=== PATIENT | male | born 1985 | race Asian ===

== ENCOUNTER 2017-02-20 17:04 | Emergency (ER) | payer MEDICAID, OTHER ==
[~2017-02-20] VITALS: Ht 170.2 cm; Wt 75.0 kg
[~2017-02-20 17:04] MED LIST: HALO5 PO; METF500T4 PO; VITAD1000 PO
[2017-02-20] MEDS ORDERED: LORazepam 2 MG/ML VIAL IM ONE (17:45)
[2017-02-20 19:14] VITALS: BP 124/85
== END 2017-02-20 19:17 | disposition home or self-care (01) ==
LOC: EMS 17:07
DX: S09.90XA Unspecified injury of head, initial encounter (principal); I10 Essential (primary) hypertension; W22.8XXA Striking against or struck by other objects, initial encounter; Y93.89 Activity, other specified; Y92.89 Other specified places as the place of occurrence of the external cause; Y99.8 Other external cause status
CPT/HCPCS: 70450; 96372; 99284; J2060; 99283

== ENCOUNTER 2017-09-04 10:31 | Inpatient (IN) | payer MEDICAID, OTHER ==
[~2017-09-04] VITALS: Ht 157.5 cm; Wt 64.5 kg
[~2017-09-04 10:31] MED LIST changes: +CLOZ100 PO
[2017-09-04 11:12] LABS: BASOPHILS % (AUTO) 0.7 % (0.0-2.0); EOSINOPHILS % (AUTO) 0.6 % (1.0-6.0); HEMATOCRIT 46.3 % (41-53); HEMOGLOBIN 15.6 g/dL (13.5-17.5); LYMPHOCYTES # (AUTO) 1.8 K/uL (1.0-4.8); LYMPHOCYTES % (AUTO) 16.9 % (22.0-44.0); MEAN CORPUSCULAR HGB CONC 33.7 G/dL (31.0-37.0); MEAN CORPUSCULAR VOLUME 74 fL (80-100); MONOCYTES # (AUTO) 0.7 K/uL (0.1-1.0); MONOCYTES % (AUTO) 6.5 % (2.0-9.0); NEUTROPHILS # (AUTO) 8.1 K/uL (1.8-7.7); NEUTROPHILS % (AUTO) 75.3 % (40.0-70.0); PLATELET COUNT (AUTO) 261 K/uL (150-450); RED BLOOD CELL COUNT(AUTO) 6.24 MIL/uL (4.50-5.90); RED CELL DISTRIBUTION WIDTH 13.4 % (11.5-14.5)
[2017-09-04 11:31] LABS: ANION GAP 13 mmol/L (8-16); CALCIUM, TOTAL 9.6 mg/dL (8.8-10.5); CARBON DIOXIDE 27 mmol/L (22-29); CHLORIDE 100 mmol/L (98-107); CREATININE 0.81 mg/dL (0.60-1.30); GLOMERULAR FILTR. RATE CALC > 60 mL/min (>60); GLUCOSE,RANDOM 163 mg/dL (70-110); POTASSIUM 3.8 mmol/L (3.5-5.1); SODIUM SERUM 140 mmol/L (136-145); UREA NITROGEN, BLOOD 10 mg/dL (7-18)
[2017-09-04 11:37] LABS: ALANINE AMINOTRANSFERASE 58 U/L (12-78); ALBUMIN 4.3 g/dL (3.4-5.0); ALKALINE PHOSPHATASE 97 U/L (46-116); ASPARTATE AMINOTRANSFERASE 26 U/L (15-37); BILIRUBIN,TOTAL 1.7 mg/dL (0.1-1.0); TOTAL PROTEIN, SERUM 8.5 g/dL (6.4-8.2)
[2017-09-04] MEDS ORDERED: LORazepam 2 MG TABLET PO PRN (14:15)
[2017-09-04] MEDS ORDERED: ZOLPIDEM TARTRATE 10 MG TABLET PO PRN (14:15)
[2017-09-04] MEDS ORDERED: HALOPERIDOL 5 MG TABLET PO PRN (14:15)
[2017-09-04] MEDS ORDERED: HALOPERIDOL 5 MG TABLET PO ONE (16:45)
[2017-09-04] MEDS ORDERED: LORazepam 2 MG TABLET PO ONE (16:45)
[2017-09-04 17:11] LABS: AMPHET/METH SCREEN,URINE NEGATIVE (NEGATIVE); BARBITURATE SCREEN, URINE NEGATIVE (NEGATIVE); BENZODIAZEPINES SCREEN,URINE NEGATIVE (NEGATIVE); CANNABINOID SCREEN,URINE NEGATIVE (NEGATIVE); COCAINE SCREEN,URINE NEGATIVE (NEGATIVE); METHADONE SCREEN, URINE NEGATIVE (NEGATIVE); OPIATE SCREEN,URINE NEGATIVE (NEGATIVE)
[2017-09-04 17:14] LABS: PHENCYCLIDINE SCREEN,URINE NEGATIVE (NEGATIVE)
[2017-09-04] MEDS ORDERED: PETROLATUM,WHITE 71 GM JELLY TP PRN (18:15)
[2017-09-04] MEDS ORDERED: ALBUTEROL SULFATE HFA 90 MCG/PUFF 8 GM INHALER IH PRN (18:15)
[2017-09-04] MEDS ORDERED: BACITRACIN 28.4 GM OINTMENT TP PRN (18:15)
[2017-09-04] MEDS ORDERED: ONDANSETRON HCL 4 MG TABLET PO PRN (18:15)
[2017-09-04] MEDS ORDERED: MAG HYDROX/AL HYDROX/SIMETH ES 30 ML SUSPENSION UDCUP PO PRN (18:15)
[2017-09-04] MEDS ORDERED: MAGNESIUM HYDROXIDE SUSPENSION 30 ML UDCUP PO PRN (18:15)
[2017-09-04] MEDS ORDERED: BENZOCAINE/MENTHOL LOZENGE [8 LOZENGES/PACKET] MM PRN (18:15)
[2017-09-04] MEDS ORDERED: LOPERAMIDE HCL 2 MG CAPSULE PO PRN (18:15)
[2017-09-04] MEDS ORDERED: CloNIDine HCL 0.1 MG TABLET PO PRN (18:15)
[2017-09-04] MEDS ORDERED: IBUPROFEN 600 MG TABLET PO PRN (18:15)
[2017-09-04] MEDS ORDERED: ACETAMINOPHEN 325 MG TABLET PO PRN (18:15)
[2017-09-04] MEDS ORDERED: DEXTROSE 50%-WATER 25 GM/50 ML SYRINGE IVP PRN (18:30)
[2017-09-04 19:13] VITALS: BP 118/70
[2017-09-04] MEDS ORDERED: INFLUENZA VIRUS VACCINE QVS 2017-18 (3YR+)/PF 60 MCG/0.5 ML SYRINGE IM ONE (19:45)
[2017-09-04] MEDS: HALOPERIDOL 5 MG TABLET PO SCH (21:00)
[2017-09-05 05:43] LABS: GLUCOMETER DEV NAME(LOC) 3EI B; GLUCOSE,POINT OF CARE 153 MG/DL (70-110)
[2017-09-05 06:08] LABS: EOSINOPHILS % (AUTO) 3.3 % (1.0-6.0); HEMATOCRIT 43.3 % (41-53); HEMOGLOBIN 14.7 g/dL (13.5-17.5); LYMPHOCYTES # (AUTO) 2.9 K/uL (1.0-4.8); LYMPHOCYTES % (AUTO) 33.9 % (22.0-44.0); MEAN CORPUSCULAR HEMOGLOBIN 25.3 pg (26.0-34.0); MEAN CORPUSCULAR HGB CONC 33.9 G/dL (31.0-37.0); MEAN CORPUSCULAR VOLUME 75 fL (80-100); MONOCYTES % (AUTO) 12.1 % (2.0-9.0); NEUTROPHILS # (AUTO) 4.3 K/uL (1.8-7.7); NEUTROPHILS % (AUTO) 49.7 % (40.0-70.0); PLATELET COUNT (AUTO) 240 K/uL (150-450); RED BLOOD CELL COUNT(AUTO) 5.81 MIL/uL (4.50-5.90); RED CELL DISTRIBUTION WIDTH 13.3 % (11.5-14.5)
[2017-09-05 06:30] LABS: ANION GAP 8 mmol/L (8-16); CARBON DIOXIDE 28 mmol/L (22-29); CHLORIDE 103 mmol/L (98-107); CHOL/HDL RATIO 3.9 (4.2-7.3); CHOLESTEROL 139 mg/dL (131-200); CREATININE 0.71 mg/dL (0.60-1.30); GLOMERULAR FILTR. RATE CALC > 60 mL/min (>60); GLUCOSE,RANDOM 160 mg/dL (70-110); HDL CHOLESTEROL 36 mg/dL (40-60); LDL CHOL (CALC.) 83 mg/dL (0-130); POTASSIUM 4.1 mmol/L (3.5-5.1); SODIUM SERUM 139 mmol/L (136-145); THYROID STIMULATING HORMONE 1.16 uIU/mL (0.36-3.74); TRIGLYCERIDES 102 mg/dL (15-150); UREA NITROGEN, BLOOD 12 mg/dL (7-18)
[2017-09-05] MEDS: MetFORMIN HCL 500 MG TABLET PO SCH ×2 (06:41→17:23)
[2017-09-05] MEDS: INSULIN ASPART 100 UNITS/ML - NON-FORMULARY SQ PRN (06:49)
[2017-09-05] MEDS: OMEPRAZOLE 20 MG CAPSULE PO SCH (09:00)
[2017-09-05] MEDS: DOCUSATE SODIUM 100 MG CAPSULE PO SCH (09:00)
[2017-09-05 09:29] VITALS: BP 113/75
[2017-09-05] MEDS ORDERED: HALOPERIDOL LACTATE 5 MG/ML VIAL IM PRN (18:15)
[2017-09-05] MEDS: HALOPERIDOL 5 MG TABLET PO SCH (20:47)
[2017-09-06 06:59] LABS: BASOPHILS % (AUTO) 0.9 % (0.0-2.0); EOSINOPHILS % (AUTO) 1.9 % (1.0-6.0); HEMATOCRIT 43.5 % (41-53); HEMOGLOBIN 14.5 g/dL (13.5-17.5); LYMPHOCYTES # (AUTO) 2.3 K/uL (1.0-4.8); LYMPHOCYTES % (AUTO) 30.2 % (22.0-44.0); MEAN CORPUSCULAR HEMOGLOBIN 24.9 pg (26.0-34.0); MEAN CORPUSCULAR HGB CONC 33.3 G/dL (31.0-37.0); MEAN CORPUSCULAR VOLUME 75 fL (80-100); MONOCYTES # (AUTO) 0.8 K/uL (0.1-1.0); MONOCYTES % (AUTO) 10.8 % (2.0-9.0); NEUTROPHILS # (AUTO) 4.2 K/uL (1.8-7.7); NEUTROPHILS % (AUTO) 56.2 % (40.0-70.0); PLATELET COUNT (AUTO) 249 K/uL (150-450); RED BLOOD CELL COUNT(AUTO) 5.84 MIL/uL (4.50-5.90); RED CELL DISTRIBUTION WIDTH 13.1 % (11.5-14.5)
[2017-09-06] MEDS: MetFORMIN HCL 500 MG TABLET PO SCH ×2 (07:00→17:21)
[2017-09-06 07:17] LABS: GLUCOMETER DEV NAME(LOC) 3EI B; GLUCOSE,POINT OF CARE 145 MG/DL (70-110)
[2017-09-06] MEDS: INSULIN ASPART 100 UNITS/ML - NON-FORMULARY SQ PRN ×3 (07:19→17:19)
[2017-09-06 08:48] VITALS: BP 115/77
[2017-09-06] MEDS ORDERED: CloZAPine 25 MG TABLET PO SCH (09:00)
[2017-09-06] MEDS: OMEPRAZOLE 20 MG CAPSULE PO SCH (10:38)
[2017-09-06] MEDS: DOCUSATE SODIUM 100 MG CAPSULE PO SCH (10:38)
[2017-09-06 11:17] LABS: GLUCOMETER DEV NAME(LOC) 3EI B; GLUCOSE,POINT OF CARE 194 MG/DL (70-110)
[2017-09-06 16:32] LABS: GLUCOMETER DEV NAME(LOC) 3EI B; GLUCOSE,POINT OF CARE 182 MG/DL (70-110)
[2017-09-06 21:42] LABS: GLUCOMETER DEV NAME(LOC) 3EI B; GLUCOSE,POINT OF CARE 125 MG/DL (70-110)
[2017-09-06] MEDS: HALOPERIDOL 5 MG TABLET PO SCH (21:48)
[2017-09-07 05:53] LABS: GLUCOMETER DEV NAME(LOC) 3EI B; GLUCOSE,POINT OF CARE 138 MG/DL (70-110)
[2017-09-07] MEDS: MetFORMIN HCL 500 MG TABLET PO SCH ×2 (07:28→17:25)
[2017-09-07] MEDS ORDERED: CloZAPine 25 MG TABLET PO SCH ×2 (09:00→21:00)
[2017-09-07 09:28] VITALS: BP 106/60
[2017-09-07] MEDS: OMEPRAZOLE 20 MG CAPSULE PO SCH (09:39)
[2017-09-07] MEDS: DOCUSATE SODIUM 100 MG CAPSULE PO SCH (09:39)
[2017-09-07 17:18] LABS: GLUCOMETER DEV NAME(LOC) 3EI B; GLUCOSE,POINT OF CARE 141 MG/DL (70-110)
[2017-09-07] MEDS: INSULIN ASPART 100 UNITS/ML - NON-FORMULARY SQ PRN ×2 (17:24→20:52)
[2017-09-07 18:21] VITALS: BP 118/73
[2017-09-07] MEDS: HALOPERIDOL 5 MG TABLET PO SCH (20:51)
[2017-09-07 21:33] LABS: GLUCOMETER DEV NAME(LOC) 3EI B; GLUCOSE,POINT OF CARE 144 MG/DL (70-110)
[2017-09-08 05:58] LABS: GLUCOMETER DEV NAME(LOC) 3EI B; GLUCOSE,POINT OF CARE 114 MG/DL (70-110)
[2017-09-08] MEDS: MetFORMIN HCL 500 MG TABLET PO SCH ×2 (06:47→18:16)
[2017-09-08] MEDS ORDERED: CloZAPine 25 MG TABLET PO SCH ×2 (09:00→21:00)
[2017-09-08] MEDS: OMEPRAZOLE 20 MG CAPSULE PO SCH (10:22)
[2017-09-08] MEDS: DOCUSATE SODIUM 100 MG CAPSULE PO SCH (10:22)
[2017-09-08 11:37] LABS: GLUCOMETER DEV NAME(LOC) 3EI B; GLUCOSE,POINT OF CARE 114 MG/DL (70-110)
[2017-09-08 17:07] LABS: GLUCOMETER DEV NAME(LOC) 3EI B; GLUCOSE,POINT OF CARE 143 MG/DL (70-110)
[2017-09-08] MEDS: INSULIN ASPART 100 UNITS/ML - NON-FORMULARY SQ PRN (18:18)
[2017-09-08] MEDS: HALOPERIDOL 5 MG TABLET PO SCH (21:30)
[2017-09-08 21:37] LABS: GLUCOMETER DEV NAME(LOC) 3EI B; GLUCOSE,POINT OF CARE 128 MG/DL (70-110)
[2017-09-09 06:07] LABS: GLUCOMETER DEV NAME(LOC) 3EI B; GLUCOSE,POINT OF CARE 96 MG/DL (70-110)
[2017-09-09] MEDS: MetFORMIN HCL 500 MG TABLET PO SCH ×2 (06:31→17:09)
[2017-09-09 09:00] VITALS: BP 96/61
[2017-09-09] MEDS: OMEPRAZOLE 20 MG CAPSULE PO SCH (10:06)
[2017-09-09] MEDS: DOCUSATE SODIUM 100 MG CAPSULE PO SCH (10:06)
[2017-09-09] MEDS: CloZAPine 25 MG TABLET PO SCH ×3 (10:07→20:52)
[2017-09-09 11:42] LABS: GLUCOMETER DEV NAME(LOC) 3EI B; GLUCOSE,POINT OF CARE 117 MG/DL (70-110)
[2017-09-09] MEDS: INSULIN ASPART 100 UNITS/ML - NON-FORMULARY SQ PRN ×2 (14:20→17:09)
[2017-09-09 17:12] LABS: GLUCOMETER DEV NAME(LOC) 3EI B; GLUCOSE,POINT OF CARE 154 MG/DL (70-110)
[2017-09-09] MEDS: HALOPERIDOL 5 MG TABLET PO SCH (20:52)
[2017-09-09 20:57] LABS: GLUCOMETER DEV NAME(LOC) 3EI B; GLUCOSE,POINT OF CARE 104 MG/DL (70-110)
[2017-09-10 05:43] LABS: GLUCOMETER DEV NAME(LOC) 3EI B; GLUCOSE,POINT OF CARE 99 MG/DL (70-110)
[2017-09-10] MEDS: MetFORMIN HCL 500 MG TABLET PO SCH ×2 (06:51→16:33)
[2017-09-10 09:00] VITALS: BP 94/55
[2017-09-10] MEDS: OMEPRAZOLE 20 MG CAPSULE PO SCH (09:36)
[2017-09-10] MEDS: CloZAPine 25 MG TABLET PO SCH ×2 (09:36→20:13)
[2017-09-10] MEDS: DOCUSATE SODIUM 100 MG CAPSULE PO SCH (09:36)
[2017-09-10 11:43] LABS: GLUCOMETER DEV NAME(LOC) 3EI B; GLUCOSE,POINT OF CARE 155 MG/DL (70-110)
[2017-09-10] MEDS: INSULIN ASPART 100 UNITS/ML - NON-FORMULARY SQ PRN (11:54)
[2017-09-10 16:32] LABS: GLUCOMETER DEV NAME(LOC) 3EI B; GLUCOSE,POINT OF CARE 142 MG/DL (70-110)
[2017-09-10] MEDS: HALOPERIDOL 5 MG TABLET PO SCH (20:12)
[2017-09-10 20:32] LABS: GLUCOMETER DEV NAME(LOC) 3EI B; GLUCOSE,POINT OF CARE 116 MG/DL (70-110)
[2017-09-11 05:58] LABS: GLUCOMETER DEV NAME(LOC) 3EI B; GLUCOSE,POINT OF CARE 137 MG/DL (70-110)
[2017-09-11] MEDS: MetFORMIN HCL 500 MG TABLET PO SCH ×2 (06:45→16:36)
[2017-09-11] MEDS ORDERED: CloZAPine 25 MG TABLET PO SCH (09:00)
[2017-09-11] MEDS: OMEPRAZOLE 20 MG CAPSULE PO SCH (10:19)
[2017-09-11] MEDS: DOCUSATE SODIUM 100 MG CAPSULE PO SCH (10:19)
[2017-09-11 10:40] VITALS: BP 107/69
[2017-09-11 11:47] LABS: GLUCOMETER DEV NAME(LOC) 3EI B; GLUCOSE,POINT OF CARE 108 MG/DL (70-110)
[2017-09-11] MEDS: INSULIN ASPART 100 UNITS/ML - NON-FORMULARY SQ PRN (12:01)
[2017-09-11 17:22] LABS: GLUCOMETER DEV NAME(LOC) 3EI B; GLUCOSE,POINT OF CARE 102 MG/DL (70-110)
[2017-09-11 19:01] VITALS: BP 118/72
[2017-09-11] MEDS: HALOPERIDOL 5 MG TABLET PO SCH (20:15)
[2017-09-11] MEDS ORDERED: CloZAPine 100 MG TABLET PO SCH (21:00)
[2017-09-12 05:42] LABS: GLUCOMETER DEV NAME(LOC) 3EI B; GLUCOSE,POINT OF CARE 86 MG/DL (70-110)
[2017-09-12] MEDS: MetFORMIN HCL 500 MG TABLET PO SCH ×2 (06:41→17:37)
[2017-09-12 08:00] VITALS: BP 95/57
[2017-09-12] MEDS ORDERED: CloZAPine 25 MG TABLET PO SCH (09:00)
[2017-09-12] MEDS: OMEPRAZOLE 20 MG CAPSULE PO SCH (09:30)
[2017-09-12] MEDS: DOCUSATE SODIUM 100 MG CAPSULE PO SCH (09:31)
[2017-09-12 16:32] LABS: GLUCOMETER DEV NAME(LOC) 3EI B; GLUCOSE,POINT OF CARE 101 MG/DL (70-110)
[2017-09-12 16:35] VITALS: BP 121/77
[2017-09-12] MEDS ORDERED: CloZAPine 100 MG TABLET PO SCH (21:00)
[2017-09-12] MEDS: HALOPERIDOL 5 MG TABLET PO SCH (21:12)
[2017-09-12 21:18] LABS: GLUCOMETER DEV NAME(LOC) 3EI B; GLUCOSE,POINT OF CARE 96 MG/DL (70-110)
[2017-09-13 05:48] LABS: GLUCOMETER DEV NAME(LOC) 3EI B; GLUCOSE,POINT OF CARE 113 MG/DL (70-110)
[2017-09-13] MEDS: MetFORMIN HCL 500 MG TABLET PO SCH ×2 (06:47→17:12)
[2017-09-13 07:38] LABS: BASOPHILS % (AUTO) 0.8 % (0.0-2.0); EOSINOPHILS % (AUTO) 1.8 % (1.0-6.0); HEMOGLOBIN 14.4 g/dL (13.5-17.5); LYMPHOCYTES # (AUTO) 4.6 K/uL (1.0-4.8); LYMPHOCYTES % (AUTO) 46.6 % (22.0-44.0); MEAN CORPUSCULAR HEMOGLOBIN 24.9 pg (26.0-34.0); MEAN CORPUSCULAR HGB CONC 33.4 G/dL (31.0-37.0); MEAN CORPUSCULAR VOLUME 75 fL (80-100); MONOCYTES # (AUTO) 0.5 K/uL (0.1-1.0); NEUTROPHILS # (AUTO) 4.5 K/uL (1.8-7.7); NEUTROPHILS % (AUTO) 45.8 % (40.0-70.0); PLATELET COUNT (AUTO) 268 K/uL (150-450); RED BLOOD CELL COUNT(AUTO) 5.77 MIL/uL (4.50-5.90); RED CELL DISTRIBUTION WIDTH 13.2 % (11.5-14.5)
[2017-09-13 08:00] VITALS: BP 122/73
[2017-09-13] MEDS ORDERED: CloZAPine 25 MG TABLET PO SCH (09:00)
[2017-09-13] MEDS: OMEPRAZOLE 20 MG CAPSULE PO SCH (09:23)
[2017-09-13] MEDS: DOCUSATE SODIUM 100 MG CAPSULE PO SCH (09:24)
[2017-09-13 16:32] VITALS: BP 123/71
[2017-09-13 17:13] LABS: GLUCOMETER DEV NAME(LOC) 3EI B; GLUCOSE,POINT OF CARE 98 MG/DL (70-110)
[2017-09-13] MEDS: HALOPERIDOL 5 MG TABLET PO SCH (20:51)
[2017-09-13] MEDS ORDERED: CloZAPine 100 MG TABLET PO SCH (21:00)
[2017-09-14 05:43] LABS: GLUCOMETER DEV NAME(LOC) 3EI B; GLUCOSE,POINT OF CARE 124 MG/DL (70-110)
[2017-09-14] MEDS: MetFORMIN HCL 500 MG TABLET PO SCH ×2 (06:50→17:19)
[2017-09-14 09:00] VITALS: BP 112/76
[2017-09-14] MEDS: CloZAPine 100 MG TABLET PO SCH ×2 (09:48→20:39)
[2017-09-14] MEDS: OMEPRAZOLE 20 MG CAPSULE PO SCH (09:48)
[2017-09-14] MEDS: DOCUSATE SODIUM 100 MG CAPSULE PO SCH (09:48)
[2017-09-14 16:06] VITALS: BP 126/80
[2017-09-14 17:12] LABS: GLUCOMETER DEV NAME(LOC) 3EI B; GLUCOSE,POINT OF CARE 156 MG/DL (70-110)
[2017-09-14] MEDS: INSULIN ASPART 100 UNITS/ML - NON-FORMULARY SQ PRN (17:20)
[2017-09-14] MEDS: HALOPERIDOL 5 MG TABLET PO SCH (20:38)
[2017-09-15 06:28] LABS: GLUCOMETER DEV NAME(LOC) 3EI B; GLUCOSE,POINT OF CARE 97 MG/DL (70-110)
[2017-09-15] MEDS: MetFORMIN HCL 500 MG TABLET PO SCH ×2 (06:57→16:28)
[2017-09-15 09:00] VITALS: BP 99/67
[2017-09-15] MEDS: CloZAPine 100 MG TABLET PO SCH ×2 (09:59→20:26)
[2017-09-15] MEDS: OMEPRAZOLE 20 MG CAPSULE PO SCH (09:59)
[2017-09-15] MEDS: DOCUSATE SODIUM 100 MG CAPSULE PO SCH (09:59)
[2017-09-15 16:30] VITALS: BP 119/78
[2017-09-15 16:37] LABS: GLUCOMETER DEV NAME(LOC) 3EI B; GLUCOSE,POINT OF CARE 84 MG/DL (70-110)
[2017-09-15] MEDS: HALOPERIDOL 5 MG TABLET PO SCH (20:27)
[2017-09-16 06:02] LABS: GLUCOMETER DEV NAME(LOC) 3EI B; GLUCOSE,POINT OF CARE 122 MG/DL (70-110)
[2017-09-16] MEDS: MetFORMIN HCL 500 MG TABLET PO SCH ×2 (06:51→17:19)
[2017-09-16 08:00] VITALS: BP 104/65
[2017-09-16] MEDS ORDERED: CloZAPine 25 MG TABLET PO SCH (09:00)
[2017-09-16] MEDS: OMEPRAZOLE 20 MG CAPSULE PO SCH (09:15)
[2017-09-16] MEDS: DOCUSATE SODIUM 100 MG CAPSULE PO SCH (09:15)
[2017-09-16 17:21] LABS: GLUCOMETER DEV NAME(LOC) 3EI B; GLUCOSE,POINT OF CARE 125 MG/DL (70-110)
[2017-09-16] MEDS: HALOPERIDOL 5 MG TABLET PO SCH (20:17)
[2017-09-16 20:24] VITALS: BP 106/71
[2017-09-16] MEDS ORDERED: CloZAPine 100 MG TABLET PO SCH (21:00)
[2017-09-17 05:38] LABS: GLUCOMETER DEV NAME(LOC) 3EI B; GLUCOSE,POINT OF CARE 108 MG/DL (70-110)
[2017-09-17] MEDS: MetFORMIN HCL 500 MG TABLET PO SCH ×2 (07:00→17:17)
[2017-09-17] MEDS: INSULIN ASPART 100 UNITS/ML - NON-FORMULARY SQ PRN (07:00)
[2017-09-17 08:00] VITALS: BP 100/62
[2017-09-17] MEDS ORDERED: CloZAPine 25 MG TABLET PO SCH (09:00)
[2017-09-17] MEDS: DOCUSATE SODIUM 100 MG CAPSULE PO SCH (09:49)
[2017-09-17] MEDS: OMEPRAZOLE 20 MG CAPSULE PO SCH (09:50)
[2017-09-17 16:11] VITALS: BP 101/52
[2017-09-17 17:03] LABS: GLUCOMETER DEV NAME(LOC) 3EI B; GLUCOSE,POINT OF CARE 114 MG/DL (70-110)
[2017-09-17] MEDS ORDERED: CloZAPine 100 MG TABLET PO SCH (21:00)
[2017-09-17] MEDS: HALOPERIDOL 5 MG TABLET PO SCH (21:11)
[2017-09-18 05:33] LABS: GLUCOMETER DEV NAME(LOC) 3EI B; GLUCOSE,POINT OF CARE 145 MG/DL (70-110)
[2017-09-18] MEDS: MetFORMIN HCL 500 MG TABLET PO SCH ×2 (07:01→17:21)
[2017-09-18] MEDS: INSULIN ASPART 100 UNITS/ML - NON-FORMULARY SQ PRN (07:12)
[2017-09-18 08:05] VITALS: BP 102/70
[2017-09-18] MEDS: OMEPRAZOLE 20 MG CAPSULE PO SCH (09:43)
[2017-09-18] MEDS: CloZAPine 100 MG TABLET PO SCH ×2 (09:43→20:08)
[2017-09-18] MEDS: DOCUSATE SODIUM 100 MG CAPSULE PO SCH (09:43)
[2017-09-18 16:25] VITALS: BP 114/76
[2017-09-18 16:26] VITALS: BP 132/97
[2017-09-18] MEDS: HALOPERIDOL 5 MG TABLET PO SCH (20:08)
[2017-09-19] MEDS: MetFORMIN HCL 500 MG TABLET PO SCH ×2 (06:56→17:15)
[2017-09-19] MEDS: INSULIN ASPART 100 UNITS/ML - NON-FORMULARY SQ PRN (06:56)
[2017-09-19 08:05] VITALS: BP 126/77
[2017-09-19] MEDS: DOCUSATE SODIUM 100 MG CAPSULE PO SCH (10:00)
[2017-09-19] MEDS: OMEPRAZOLE 20 MG CAPSULE PO SCH (10:01)
[2017-09-19] MEDS: CloZAPine 100 MG TABLET PO SCH ×2 (10:01→20:41)
[2017-09-19 14:04] LABS: GLUCOMETER DEV NAME(LOC) 3EI B; GLUCOSE,POINT OF CARE 107 MG/DL (70-110)
[2017-09-19 14:05] LABS: GLUCOMETER DEV NAME(LOC) 3EI B; GLUCOSE,POINT OF CARE 135 MG/DL (70-110)
[2017-09-19 16:29] VITALS: BP 101/61
[2017-09-19 17:22] LABS: GLUCOMETER DEV NAME(LOC) 3EI B; GLUCOSE,POINT OF CARE 105 MG/DL (70-110)
[2017-09-19] MEDS: HALOPERIDOL 5 MG TABLET PO SCH (20:41)
[2017-09-20 05:32] LABS: GLUCOMETER DEV NAME(LOC) 3EI B; GLUCOSE,POINT OF CARE 108 MG/DL (70-110)
[2017-09-20 06:16] VITALS: BP 106/64
[2017-09-20] MEDS: MetFORMIN HCL 500 MG TABLET PO SCH ×2 (06:56→17:12)
[2017-09-20] MEDS: INSULIN ASPART 100 UNITS/ML - NON-FORMULARY SQ PRN ×2 (06:57→17:10)
[2017-09-20 06:59] LABS: BASOPHILS % (AUTO) 0.6 % (0.0-2.0); EOSINOPHILS % (AUTO) 2.1 % (1.0-6.0); HEMATOCRIT 42.5 % (41-53); HEMOGLOBIN 14.3 g/dL (13.5-17.5); LYMPHOCYTES # (AUTO) 3.7 K/uL (1.0-4.8); LYMPHOCYTES % (AUTO) 38.7 % (22.0-44.0); MEAN CORPUSCULAR HEMOGLOBIN 25.2 pg (26.0-34.0); MEAN CORPUSCULAR HGB CONC 33.7 G/dL (31.0-37.0); MEAN CORPUSCULAR VOLUME 75 fL (80-100); MONOCYTES # (AUTO) 0.5 K/uL (0.1-1.0); MONOCYTES % (AUTO) 5.4 % (2.0-9.0); NEUTROPHILS # (AUTO) 5.1 K/uL (1.8-7.7); NEUTROPHILS % (AUTO) 53.2 % (40.0-70.0); PLATELET COUNT (AUTO) 246 K/uL (150-450); RED BLOOD CELL COUNT(AUTO) 5.68 MIL/uL (4.50-5.90); RED CELL DISTRIBUTION WIDTH 13.4 % (11.5-14.5)
[2017-09-20 08:00] VITALS: BP 96/58
[2017-09-20] MEDS: CloZAPine 100 MG TABLET PO SCH ×2 (10:17→20:24)
[2017-09-20] MEDS: DOCUSATE SODIUM 100 MG CAPSULE PO SCH (10:17)
[2017-09-20] MEDS: OMEPRAZOLE 20 MG CAPSULE PO SCH (10:17)
[2017-09-20 16:33] LABS: GLUCOMETER DEV NAME(LOC) 3EI B; GLUCOSE,POINT OF CARE 142 MG/DL (70-110)
[2017-09-20 18:54] VITALS: BP 109/71
[2017-09-20] MEDS: HALOPERIDOL 5 MG TABLET PO SCH (20:24)
[2017-09-21 05:30] VITALS: BP 106/72
[2017-09-21 06:07] LABS: GLUCOMETER DEV NAME(LOC) 3EI B; GLUCOSE,POINT OF CARE 123 MG/DL (70-110)
[2017-09-21] MEDS: MetFORMIN HCL 500 MG TABLET PO SCH ×2 (07:02→17:42)
[2017-09-21 08:47] VITALS: BP 102/70
[2017-09-21] MEDS: DOCUSATE SODIUM 100 MG CAPSULE PO SCH (09:47)
[2017-09-21] MEDS: CloZAPine 100 MG TABLET PO SCH ×2 (09:47→20:52)
[2017-09-21] MEDS: OMEPRAZOLE 20 MG CAPSULE PO SCH (09:48)
[2017-09-21 16:27] LABS: GLUCOMETER DEV NAME(LOC) 3EI B; GLUCOSE,POINT OF CARE 87 MG/DL (70-110)
[2017-09-21 16:31] VITALS: BP 110/69
[2017-09-21] MEDS: HALOPERIDOL 5 MG TABLET PO SCH (20:52)
[2017-09-22 06:08] LABS: GLUCOMETER DEV NAME(LOC) 3EI B; GLUCOSE,POINT OF CARE 116 MG/DL (70-110)
[2017-09-22] MEDS: MetFORMIN HCL 500 MG TABLET PO SCH ×2 (06:49→17:22)
[2017-09-22] MEDS: OMEPRAZOLE 20 MG CAPSULE PO SCH (08:52)
[2017-09-22] MEDS: DOCUSATE SODIUM 100 MG CAPSULE PO SCH (08:52)
[2017-09-22] MEDS: CloZAPine 100 MG TABLET PO SCH ×2 (08:52→20:18)
[2017-09-22 16:23] VITALS: BP 121/73
[2017-09-22 17:37] LABS: GLUCOMETER DEV NAME(LOC) 3EI B; GLUCOSE,POINT OF CARE 94 MG/DL (70-110)
[2017-09-22] MEDS: HALOPERIDOL 5 MG TABLET PO SCH (20:15)
[2017-09-23 05:52] LABS: GLUCOMETER DEV NAME(LOC) 3EI B; GLUCOSE,POINT OF CARE 134 MG/DL (70-110)
[2017-09-23] MEDS: MetFORMIN HCL 500 MG TABLET PO SCH ×2 (06:49→17:39)
[2017-09-23 08:00] VITALS: BP 87/69
[2017-09-23] MEDS: DOCUSATE SODIUM 100 MG CAPSULE PO SCH (09:09)
[2017-09-23] MEDS: OMEPRAZOLE 20 MG CAPSULE PO SCH (09:09)
[2017-09-23] MEDS: CloZAPine 100 MG TABLET PO SCH ×2 (09:09→20:19)
[2017-09-23 13:34] VITALS: BP 104/57
[2017-09-23 16:28] VITALS: BP 119/82
[2017-09-23 16:47] LABS: GLUCOMETER DEV NAME(LOC) 3EI B; GLUCOSE,POINT OF CARE 104 MG/DL (70-110)
[2017-09-23] MEDS: HALOPERIDOL 5 MG TABLET PO SCH (20:19)
[2017-09-24 05:27] LABS: GLUCOMETER DEV NAME(LOC) 3EI B; GLUCOSE,POINT OF CARE 125 MG/DL (70-110)
[2017-09-24] MEDS: MetFORMIN HCL 500 MG TABLET PO SCH (06:57)
[2017-09-24] MEDS: INSULIN ASPART 100 UNITS/ML - NON-FORMULARY SQ PRN (07:07)
[2017-09-24] MEDS: CloZAPine 100 MG TABLET PO SCH (08:51)
[2017-09-24] MEDS: OMEPRAZOLE 20 MG CAPSULE PO SCH (08:51)
[2017-09-24] MEDS: DOCUSATE SODIUM 100 MG CAPSULE PO SCH (08:51)
[2017-09-24] MEDS ORDERED: CLOZ100 PO ×2 (13:56→13:57)
[2017-09-24] MEDS ORDERED: HALO5 PO (13:57)
[2017-09-24] MEDS ORDERED: OMEP20 PO (13:58)
[2017-09-24] MEDS ORDERED: DSS100 PO (13:58)
[2017-09-24] MEDS ORDERED: METF500T4 PO (13:58)
[2017-09-24 16:03] LABS: GLUCOMETER DEV NAME(LOC) 3EI B; GLUCOSE,POINT OF CARE 107 MG/DL (70-110)
== END 2017-09-24 17:00 | disposition home or self-care (01) | DRG 750 ==
LOC: EEVIPCON 10:34 → EMS 10:34 → 3EI 16:20
PROVIDERS: ADMIT Psychiatry & Neurology Psychiatry; ATTEND Psychiatry & Neurology Psychiatry
DX: F20.0 Paranoid schizophrenia (principal); E11.65 Type 2 diabetes mellitus with hyperglycemia; R45.851 Suicidal ideations; I10 Essential (primary) hypertension; F17.200 Nicotine dependence, unspecified, uncomplicated; F32.9 Major depressive disorder, single episode, unspecified; G47.00 Insomnia, unspecified; K21.9 Gastro-esophageal reflux disease without esophagitis; K59.00 Constipation, unspecified; Z91.14 Patient's other noncompliance with medication regimen; Z28.21 Immunization not carried out because of patient refusal; Z59.0 Homelessness; Z71.6 Tobacco abuse counseling
CPT/HCPCS: 82306; 82962; 84443; 99285; G0480

== ENCOUNTER 2019-10-30 19:35 | Inpatient (IN) | payer MEDICAID, OTHER ==
[~2019-10-30] VITALS: Ht 160 cm; Wt 66.7 kg
[~2019-10-30 19:35] MED LIST changes: -CLOZ100 PO; +CLOZ100T32 PO; +DSS100 PO; -HALO5 PO; +HALO5TAB2 PO; +METF-960 PO; -METF500T4 PO; +OMEP20 PO; -VITAD1000 PO
[2019-10-30 21:44] LABS: GLUCOSE,POINT OF CARE 80 MG/DL (70-110)
[2019-10-30 21:58] LABS: BASOPHILS % (AUTO) 0.6 % (0.0-2.0); HEMATOCRIT 42.8 % (41-53); HEMOGLOBIN 13.9 g/dL (13.5-17.5); LYMPHOCYTES # (AUTO) 3.2 K/uL (1.0-4.8); LYMPHOCYTES % (AUTO) 36.2 % (22.0-44.0); MEAN CORPUSCULAR HEMOGLOBIN 25.4 pg (26.0-34.0); MEAN CORPUSCULAR HGB CONC 32.5 G/dL (31.0-37.0); MEAN CORPUSCULAR VOLUME 78 fL (80-100); MONOCYTES # (AUTO) 0.7 K/uL (0.1-1.0); MONOCYTES % (AUTO) 8.5 % (2.0-9.0); NEUTROPHILS # (AUTO) 4.7 K/uL (1.8-7.7); NEUTROPHILS % (AUTO) 53.7 % (40.0-70.0); PLATELET COUNT (AUTO) 209 K/uL (150-450); RED BLOOD CELL COUNT(AUTO) 5.48 MIL/uL (4.50-5.90); RED CELL DISTRIBUTION WIDTH 14.1 % (11.5-14.5)
[2019-10-30 22:10] LABS: AMPHET/METH SCREEN,URINE NEGATIVE (NEGATIVE); BARBITURATE SCREEN, URINE NEGATIVE (NEGATIVE); BENZODIAZEPINES SCREEN,URINE NEGATIVE (NEGATIVE); CANNABINOID SCREEN,URINE NEGATIVE (NEGATIVE); COCAINE SCREEN,URINE NEGATIVE (NEGATIVE); METHADONE SCREEN, URINE NEGATIVE (NEGATIVE); OPIATE SCREEN,URINE NEGATIVE (NEGATIVE)
[2019-10-30 22:21] LABS: ANION GAP 9 mmol/L (8-16); CALCIUM, TOTAL 9.7 mg/dL (8.8-10.5); CARBON DIOXIDE 27 mmol/L (22-29); CHLORIDE 105 mmol/L (98-107); CREATININE 1.07 mg/dL (0.60-1.30); GLOMERULAR FILTR. RATE CALC > 60 mL/min (>60); GLUCOSE,RANDOM 80 mg/dL (70-110); POTASSIUM 3.7 mmol/L (3.5-5.1); SODIUM SERUM 141 mmol/L (136-145); UREA NITROGEN, BLOOD 9 mg/dL (7-18)
[2019-10-30 22:25] LABS: ALANINE AMINOTRANSFERASE 33 U/L (12-78); ALBUMIN 4.6 g/dL (3.4-5.0); ALKALINE PHOSPHATASE 81 U/L (46-116); ASPARTATE AMINOTRANSFERASE 21 U/L (15-37); BILIRUBIN,TOTAL 0.6 mg/dL (0.1-1.0); TOTAL PROTEIN, SERUM 8.7 g/dL (6.4-8.2)
[2019-10-30 22:30] LABS: PHENCYCLIDINE SCREEN,URINE NEGATIVE (NEGATIVE)
[2019-10-31 02:48] VITALS: BP 105/66
[2019-10-31] MEDS ORDERED: -PHARMACY VACCINE NOTE- MISC ONE (04:30)
[2019-10-31] MEDS ORDERED: MAGNESIUM HYDROXIDE SUSPENSION 30 ML UDCUP PO PRN (08:30)
[2019-10-31] MEDS ORDERED: ACETAMINOPHEN 325 MG TABLET PO PRN (08:30)
[2019-10-31] MEDS ORDERED: NICOTINE 14 MG/24 HOUR PATCH TD PRN (08:30)
[2019-10-31] MEDS ORDERED: ONDANSETRON HCL 4 MG TABLET PO PRN (08:30)
[2019-10-31] MEDS ORDERED: PETROLATUM,WHITE 28 GM JELLY TP PRN (08:30)
[2019-10-31] MEDS ORDERED: IBUPROFEN 400 MG TABLET PO PRN (08:30)
[2019-10-31] MEDS ORDERED: ALBUTEROL SULFATE HFA 90 MCG/PUFF 8 GM INHALER IH PRN (08:30)
[2019-10-31] MEDS ORDERED: GuaiFENesin/D-METHORPHAN [SUGAR-FREE] 200-20MG/10 ML SYRUP UDCUP PO PRN (08:30)
[2019-10-31] MEDS ORDERED: LOPERAMIDE HCL 2 MG CAPSULE PO PRN (08:30)
[2019-10-31] MEDS ORDERED: CloNIDine HCL 0.1 MG TABLET PO PRN (08:30)
[2019-10-31] MEDS ORDERED: MAG HYDROX/AL HYDROX/SIMETH ES 30 ML SUSPENSION UDCUP PO PRN (08:30)
[2019-10-31] MEDS ORDERED: DOCUSATE SODIUM 100 MG CAPSULE PO PRN (08:30)
[2019-10-31 09:34] VITALS: BP 99/59
[2019-10-31] MEDS: OMEPRAZOLE 20 MG CAPSULE PO SCH (10:03)
[2019-10-31 16:00] VITALS: BP 110/71
[2019-10-31] MEDS: LORazepam 2 MG TABLET PO PRN (16:12)
[2019-10-31] MEDS: MetFORMIN HCL 500 MG TABLET PO SCH (16:12)
[2019-10-31] MEDS: DIVALPROEX SODIUM 500 MG DR TABLET PO SCH (20:21)
[2019-10-31] MEDS: CloZAPine 100 MG TABLET PO SCH (20:21)
[2019-10-31] MEDS: ZOLPIDEM TARTRATE 10 MG TABLET PO PRN (20:22)
[2019-10-31] MEDS ORDERED: HALOPERIDOL 5 MG TABLET PO SCH (21:00)
[2019-11-01] MEDS: MetFORMIN HCL 500 MG TABLET PO SCH ×2 (06:40→16:11)
[2019-11-01 08:20] LABS: CHOL/HDL RATIO 2.7 (4.2-7.3)
[2019-11-01 08:38] VITALS: BP 92/54
[2019-11-01] MEDS: DIVALPROEX SODIUM 500 MG DR TABLET PO SCH ×2 (09:11→20:41)
[2019-11-01] MEDS: OMEPRAZOLE 20 MG CAPSULE PO SCH (09:11)
[2019-11-01] MEDS: CloZAPine 100 MG TABLET PO SCH ×2 (09:11→20:41)
[2019-11-01] MEDS: HALOPERIDOL 5 MG TABLET PO PRN ×2 (16:11→21:09)
[2019-11-01] MEDS: LORazepam 2 MG TABLET PO PRN ×2 (16:11→20:41)
[2019-11-01 16:26] VITALS: BP 115/61
[2019-11-01] MEDS: ZOLPIDEM TARTRATE 10 MG TABLET PO PRN (20:41)
[2019-11-02] MEDS: MetFORMIN HCL 500 MG TABLET PO SCH ×2 (07:08→16:30)
[2019-11-02 08:19] VITALS: BP 105/58
[2019-11-02] MEDS: DIVALPROEX SODIUM 500 MG DR TABLET PO SCH ×2 (09:13→20:52)
[2019-11-02] MEDS: OMEPRAZOLE 20 MG CAPSULE PO SCH (09:14)
[2019-11-02] MEDS: CloZAPine 100 MG TABLET PO SCH ×2 (09:14→20:52)
[2019-11-02 16:21] VITALS: BP 101/60
[2019-11-03 05:44] VITALS: BP 101/65
[2019-11-03] MEDS: MetFORMIN HCL 500 MG TABLET PO SCH ×2 (06:41→16:31)
[2019-11-03 08:58] VITALS: BP 111/60
[2019-11-03] MEDS: CloZAPine 100 MG TABLET PO SCH ×2 (09:04→20:02)
[2019-11-03] MEDS: DIVALPROEX SODIUM 500 MG DR TABLET PO SCH ×2 (09:04→20:02)
[2019-11-03] MEDS: OMEPRAZOLE 20 MG CAPSULE PO SCH (09:04)
[2019-11-03 16:10] VITALS: BP 101/62
[2019-11-03] MEDS: ZOLPIDEM TARTRATE 10 MG TABLET PO PRN (20:02)
[2019-11-04 05:26] VITALS: BP 114/72
[2019-11-04] MEDS: MetFORMIN HCL 500 MG TABLET PO SCH ×2 (06:26→16:57)
[2019-11-04 08:11] VITALS: BP 101/54
[2019-11-04] MEDS: CloZAPine 100 MG TABLET PO SCH ×2 (08:46→20:54)
[2019-11-04] MEDS: OMEPRAZOLE 20 MG CAPSULE PO SCH (08:46)
[2019-11-04] MEDS: DIVALPROEX SODIUM 500 MG DR TABLET PO SCH ×2 (08:46→20:54)
[2019-11-04 16:26] VITALS: BP 117/67
[2019-11-04] MEDS: ZOLPIDEM TARTRATE 10 MG TABLET PO PRN (20:54)
[2019-11-05 06:39] VITALS: BP 99/64
[2019-11-05] MEDS: MetFORMIN HCL 500 MG TABLET PO SCH ×2 (06:46→16:28)
[2019-11-05 08:19] VITALS: BP 104/58
[2019-11-05] MEDS: CloZAPine 100 MG TABLET PO SCH ×2 (08:57→20:09)
[2019-11-05] MEDS: DIVALPROEX SODIUM 500 MG DR TABLET PO SCH ×2 (08:58→20:09)
[2019-11-05] MEDS: OMEPRAZOLE 20 MG CAPSULE PO SCH (08:58)
[2019-11-05 16:18] VITALS: BP 110/57
[2019-11-05] MEDS: HALOPERIDOL 5 MG TABLET PO PRN (16:28)
[2019-11-05] MEDS: LORazepam 2 MG TABLET PO PRN (16:29)
[2019-11-06 06:00] VITALS: BP 100/60
[2019-11-06] MEDS: MetFORMIN HCL 500 MG TABLET PO SCH ×2 (06:40→16:04)
[2019-11-06 08:41] VITALS: BP 101/57
[2019-11-06] MEDS: CloZAPine 100 MG TABLET PO SCH ×2 (09:02→20:06)
[2019-11-06] MEDS: DIVALPROEX SODIUM 500 MG DR TABLET PO SCH ×2 (09:02→20:05)
[2019-11-06] MEDS: OMEPRAZOLE 20 MG CAPSULE PO SCH (09:02)
[2019-11-06] MEDS: HALOPERIDOL 5 MG TABLET PO PRN (16:04)
[2019-11-06] MEDS: LORazepam 2 MG TABLET PO PRN (16:04)
[2019-11-06 17:38] VITALS: BP 98/69
[2019-11-07 01:27] VITALS: BP 103/65
[2019-11-07] MEDS: MetFORMIN HCL 500 MG TABLET PO SCH ×2 (06:49→16:40)
[2019-11-07] MEDS: CloZAPine 100 MG TABLET PO SCH ×2 (08:51→20:04)
[2019-11-07] MEDS: OMEPRAZOLE 20 MG CAPSULE PO SCH (08:51)
[2019-11-07] MEDS: DIVALPROEX SODIUM 500 MG DR TABLET PO SCH ×2 (08:51→20:04)
[2019-11-07 09:18] VITALS: BP 91/50
[2019-11-07 16:00] VITALS: BP 104/60
[2019-11-08 00:15] VITALS: BP 103/60
[2019-11-08] MEDS: MetFORMIN HCL 500 MG TABLET PO SCH ×2 (06:16→16:23)
[2019-11-08 07:16] LABS: BASOPHILS % (AUTO) 0.5 % (0.0-2.0); EOSINOPHILS % (AUTO) 1.6 % (1.0-6.0); HEMOGLOBIN 12.9 g/dL (13.5-17.5); LYMPHOCYTES # (AUTO) 4.7 K/uL (1.0-4.8); LYMPHOCYTES % (AUTO) 48.5 % (22.0-44.0); MEAN CORPUSCULAR HEMOGLOBIN 25.9 pg (26.0-34.0); MEAN CORPUSCULAR HGB CONC 33.1 G/dL (31.0-37.0); MEAN CORPUSCULAR VOLUME 78 fL (80-100); MONOCYTES # (AUTO) 0.7 K/uL (0.1-1.0); MONOCYTES % (AUTO) 6.8 % (2.0-9.0); NEUTROPHILS # (AUTO) 4.1 K/uL (1.8-7.7); NEUTROPHILS % (AUTO) 42.6 % (40.0-70.0); PLATELET COUNT (AUTO) 182 K/uL (150-450); RED BLOOD CELL COUNT(AUTO) 4.98 MIL/uL (4.50-5.90); RED CELL DISTRIBUTION WIDTH 14.3 % (11.5-14.5)
[2019-11-08] MEDS: CloZAPine 100 MG TABLET PO SCH ×2 (08:47→20:07)
[2019-11-08] MEDS: DIVALPROEX SODIUM 500 MG DR TABLET PO SCH ×2 (08:47→20:07)
[2019-11-08] MEDS: OMEPRAZOLE 20 MG CAPSULE PO SCH (08:47)
[2019-11-08 10:40] VITALS: BP 100/63
[2019-11-08 17:54] VITALS: BP 103/60
[2019-11-09 00:44] VITALS: BP 106/62
[2019-11-09] MEDS: MetFORMIN HCL 500 MG TABLET PO SCH ×2 (07:00→16:59)
[2019-11-09] MEDS: DIVALPROEX SODIUM 500 MG DR TABLET PO SCH ×2 (08:45→20:21)
[2019-11-09] MEDS: CloZAPine 100 MG TABLET PO SCH ×2 (08:45→20:20)
[2019-11-09] MEDS: OMEPRAZOLE 20 MG CAPSULE PO SCH (08:45)
[2019-11-09 11:07] VITALS: BP 110/65
[2019-11-09 16:34] VITALS: BP 113/67
[2019-11-10 00:27] VITALS: BP 110/72
[2019-11-10] MEDS: MetFORMIN HCL 500 MG TABLET PO SCH ×2 (06:56→16:19)
[2019-11-10 08:34] VITALS: BP 100/57
[2019-11-10] MEDS: DIVALPROEX SODIUM 500 MG DR TABLET PO SCH ×2 (08:50→20:22)
[2019-11-10] MEDS: OMEPRAZOLE 20 MG CAPSULE PO SCH (08:50)
[2019-11-10] MEDS: CloZAPine 100 MG TABLET PO SCH ×2 (08:50→20:22)
[2019-11-10 16:06] VITALS: BP 118/68
[2019-11-10] MEDS: LORazepam 2 MG TABLET PO PRN (23:14)
[2019-11-11 00:10] VITALS: BP 128/69
[2019-11-11] MEDS: MetFORMIN HCL 500 MG TABLET PO SCH (06:50)
[2019-11-11] MEDS: CloZAPine 100 MG TABLET PO SCH (08:24)
[2019-11-11] MEDS: OMEPRAZOLE 20 MG CAPSULE PO SCH (08:24)
[2019-11-11] MEDS: DIVALPROEX SODIUM 500 MG DR TABLET PO SCH (08:24)
[2019-11-11 08:45] VITALS: BP 101/69
[2019-11-11] MEDS ORDERED: DIVA-78 PO (12:10)
[2019-11-11] MEDS ORDERED: CLOZ100T31 PO ×2 (12:10)
== END 2019-11-11 18:12 | disposition home or self-care (01) | DRG 750 ==
LOC: EMS 19:38 → B3A 23:30 → B2S 11-06 18:10
DX: F20.0 Paranoid schizophrenia (principal); R45.851 Suicidal ideations; E11.9 Type 2 diabetes mellitus without complications; E78.5 Hyperlipidemia, unspecified; I10 Essential (primary) hypertension; K21.9 Gastro-esophageal reflux disease without esophagitis; K59.00 Constipation, unspecified; Z79.899 Other long term (current) drug therapy; Z91.5 Personal history of self-harm
CPT/HCPCS: G0480

== ENCOUNTER 2023-03-19 14:09 | Emergency (ER) | payer MEDICAID, OTHER ==
[~2023-03-19] VITALS: Ht 170.2 cm; Wt 63.6 kg
[~2023-03-19 14:09] MED LIST changes: +CLOZ100T11 PO; -CLOZ100T32 PO; +DIVA-112 PO; -DSS100 PO; -HALO5TAB2 PO; +METF-1211 PO; -METF-960 PO; -OMEP20 PO
[2023-03-19 14:32] VITALS: TEMP 98.8
[2023-03-19 15:44] LABS: BASOPHILS % (AUTO) 0.4 % (0.0-2.0); EOSINOPHILS % (AUTO) 0.4 % (1.0-6.0); HEMATOCRIT 39.9 % (41-53); HEMOGLOBIN 12.9 g/dL (13.5-17.5); LYMPHOCYTES # (AUTO) 2.5 K/uL (1.0-4.8); LYMPHOCYTES % (AUTO) 25.3 % (22.0-44.0); MEAN CORPUSCULAR HEMOGLOBIN 25.4 pg (26.0-34.0); MEAN CORPUSCULAR HGB CONC 32.3 G/dL (31.0-37.0); MEAN CORPUSCULAR VOLUME 79 fL (80-100); MONOCYTES # (AUTO) 0.7 K/uL (0.1-1.0); NEUTROPHILS # (AUTO) 6.7 K/uL (1.8-7.7); NEUTROPHILS % (AUTO) 66.9 % (40.0-70.0); PLATELET COUNT (AUTO) 206 K/uL (150-450); RED BLOOD CELL COUNT(AUTO) 5.08 MIL/uL (4.50-5.90); WHITE BLOOD COUNT (AUTO) 10.1 K/uL (4.5-11.0)
[2023-03-19 15:59] LABS: ALCOHOL, URINE DRUG SCREEN NEGATIVE (NEGATIVE); AMPHET/METH SCREEN,URINE NEGATIVE (NEGATIVE); BARBITURATE SCREEN, URINE NEGATIVE (NEGATIVE); BENZODIAZEPINES SCREEN,URINE NEGATIVE (NEGATIVE); CANNABINOID SCREEN,URINE NEGATIVE (NEGATIVE); COCAINE SCREEN,URINE NEGATIVE (NEGATIVE); METHADONE SCREEN, URINE NEGATIVE (NEGATIVE); OPIATE SCREEN,URINE NEGATIVE (NEGATIVE); PHENCYCLIDINE SCREEN,URINE NEGATIVE (NEGATIVE)
[2023-03-19 16:00] LABS: ANION GAP 9 mmol/L (8-16); CALCIUM, TOTAL 8.8 mg/dL (8.8-10.5); CARBON DIOXIDE 28 mmol/L (22-29); CHLORIDE 104 mmol/L (98-107); CREATININE 0.91 mg/dL (0.60-1.30); GLOMERULAR FILTR. RATE CALC > 60 mL/min (>60); GLUCOSE,RANDOM 100 mg/dL (70-110); SODIUM SERUM 141 mmol/L (136-145); UREA NITROGEN, BLOOD 7 mg/dL (7-18)
[2023-03-19 16:03] LABS: ALCOHOL, BLOOD (SERUM) < 3 mg/dL (0-10)
[2023-03-19 16:05] LABS: ALANINE AMINOTRANSFERASE 20 U/L (12-78); ALBUMIN 3.9 g/dL (3.4-5.0); ALKALINE PHOSPHATASE 64 U/L (46-116); ASPARTATE AMINOTRANSFERASE 15 U/L (15-37); BILIRUBIN,TOTAL 0.8 mg/dL (0.1-1.0); TOTAL PROTEIN, SERUM 7.5 g/dL (6.4-8.2)
[2023-03-19 17:20] VITALS: BP 122/79; PULSE 90; RESP 20
== END 2023-03-19 17:20 | disposition home or self-care (01) ==
LOC: EMS 14:20
DX: F32.A Depression, unspecified (principal); F20.9 Schizophrenia, unspecified; I10 Essential (primary) hypertension; F41.9 Anxiety disorder, unspecified
CPT/HCPCS: 99285; 80053; 85025; 36415; 80307 ×2; G0480

== ENCOUNTER 2025-06-14 19:45 | Emergency (ER) | payer SELFPAY ==
[~2025-06-14] VITALS: Ht 157.5 cm; Wt 67.3 kg
[~2025-06-14 19:45] MED LIST changes: +BUSP15 PO; -CLOZ100T11 PO; +CLOZ100T61 PO; +CLOZ200T8 PO; +CLOZ25TA52 PO; -DIVA-112 PO; +DIVA-85 PO; +MELA5TAB40 PO; -METF-1211 PO; +TRAZ-257 PO
[2025-06-14 19:49] VITALS: TEMP 98.6
[2025-06-14 22:36] LABS: PLATELET COUNT (AUTO) 201 K/uL (150-450); RED BLOOD CELL COUNT(AUTO) 5.56 MIL/uL (4.50-5.90); RED CELL DISTRIBUTION WIDTH 14.1 % (11.5-14.5); WHITE BLOOD COUNT (AUTO) 11.1 K/uL (4.5-11.0)
[2025-06-14 22:58] LABS: CALCIUM, TOTAL 9.5 mg/dL (8.8-10.5); CREATININE 0.93 mg/dL (0.60-1.30); GLOMERULAR FILTR. RATE CALC > 60 mL/min (>60); GLUCOSE,RANDOM 157 mg/dL (70-110); SODIUM SERUM 139 mmol/L (136-145); UREA NITROGEN, BLOOD 11 mg/dL (7-18)
[2025-06-14 22:59] LABS: COVID AG,FIA SOURCE NASAL SWAB
[2025-06-14 23:15] LABS: SARS-COV2 (COVID) ANTIGEN,FIA Negative (Negative)
[2025-06-14 23:27] VITALS: BP 123/61; PULSE 89; RESP 16; O2SAT 99
== END 2025-06-15 00:38 | disposition home or self-care (01) ==
LOC: EDBD → MERGE 19:45 → EMS 19:45
DX: R00.0 Tachycardia, unspecified (principal); F20.9 Schizophrenia, unspecified; Z02.89 Encounter for other administrative examinations; Z20.822 Contact with and (suspected) exposure to COVID-19
CPT/HCPCS: 99285; 87426; 80048; 85025; 36415; G0480